=== PATIENT | female | born 1935 | race Caucasian/White ===

== ENCOUNTER → 2016-09-26 | Outpatient (REF) | payer MEDICARE, OTHER ==
[~2016-09-26] MED LIST: ALLO15TA; AMLO10TA2; LABE10TAB; LEVO25TA34; LOSA100T36; NIFE30TA7; ROPI0.5T; SPIR25TA2; VITA1CAP40
== END ==
LOC: M LAB REF 17:24
PROVIDERS: ATTEND Internal Medicine Nephrology
DX: N39.0 Urinary tract infection, site not specified (principal)

== ENCOUNTER 2016-10-21 12:09 | Emergency (ER) | payer MEDICARE, OTHER ==
[~2016-10-21] VITALS: Ht 167.6 cm; Wt 95.5 kg
[2016-10-21] MEDS ORDERED: SPIR25TA2 (12:26)
[2016-10-21] MEDS ORDERED: VITA1CAP40 (12:26)
[2016-10-21] MEDS ORDERED: ALLO15TA (12:26)
[2016-10-21] MEDS ORDERED: LOSA100T36 (12:26)
[2016-10-21] MEDS ORDERED: NIFE30TA7 (12:26)
[2016-10-21] MEDS ORDERED: LEVO25TA34 (12:26)
[2016-10-21] MEDS ORDERED: LABE10TAB (12:26)
[2016-10-21] MEDS ORDERED: AMLO10TA2 (12:26)
[2016-10-21] MEDS ORDERED: ROPI0.5T (12:26)
[2016-10-21 15:41] LABS: BASO % 0.4 % (0.0-1.0); EOS # 0.1 K/mm3 (0.0-0.50); EOS % 1.2 % (0.0-3.0); LARGE UNSTAINED CELL # 0.2 K/mm3 (0.0-0.4); LARGE UNSTAINED CELL % 1.4 % (0.0-4.0); LYMPH # 1.8 K/mm3 (1.5-4.5); LYMPH % 16.2 % (24.0-44.0); MEAN CORPUSCULAR HGB CONC 34.8 g/dl (32.0-36.5); MEAN CORPUSCULAR VOLUME 91.9 fl (80.0-96.0); MONO # 0.5 K/mm3 (0.0-0.8); MONO % 4.7 % (0.0-5.0); NEUTROPHILS # 8.2 K/mm3 (1.8-7.7); NEUTROPHILS % 76.1 % (36.0-66.0); PLATELET COUNT, AUTOMATED 255 k/mm3 (150-450); RED CELL DISTRIBUTION WIDTH 13.8 % (11.5-14.5); WHITE BLOOD COUNT 10.8 K/mm3 (4.0-10.0)
[2016-10-21] MEDS ORDERED: NS 500 ML IV ONE (15:45)
[2016-10-21] MEDS: KETOROLAC 30 MG/ML VIAL (J1885) IV ONE ×2 (15:45→15:55)
[2016-10-21 15:47] LABS: INR 1.03
[2016-10-21 15:52] LABS: ALBUMIN 4.2 GM/DL (3.2-5.2); ALBUMIN/GLOBULIN RATIO 0.93 (1.00-1.93); BILIRUBIN,DIRECT 0.2 MG/DL (0.0-0.2); CALCIUM LEVEL 9.8 MG/DL (8.8-10.2); CREATININE FOR GFR 2.42 MG/DL (0.55-1.02); GLOMERULAR FILTRATION RATE 20.3 (>32); POTASSIUM SERUM 4.4 MEQ/L (3.5-5.1); TOTAL PROTEIN 8.7 GM/DL (6.4-8.2)
--- NOTE | 2016-10-21 16:04 | REP ---
Clinical: Left-sided abdominal pain. Technique: Upright view of the chest with supine and upright views of the abdomen and pelvis. Findings: Frontal upright view of the chest demonstrates no acute cardiopulmonary process or free air below the diaphragm to suspect pneumoperitoneum. Supine and upright views of the abdomen and pelvis demonstrate nonspecific bowel gas pattern without obstruction or perforation. No organomegaly. No abnormal calcifications. Postsurgical changes noted. Skeletal structures normal for age. Impression: Nonspecific bowel gas pattern. Signed by Viet Shepard MD 10/21/2016 03:54 P
--- NOTE | 2016-10-21 16:55 | REP ---
Clinical: Acute left-sided abdominal pain. Findings: Lung bases are clear. Small hiatal hernia noted. Liver, spleen, pancreas, bilateral adrenal glands and kidneys are normal. No perinephric stranding, nephrolithiasis, hydronephrosis or obstructing ureteral calculi are identified. The patient is status post cholecystectomy. The enteric system is without obstruction or acute inflammatory process. Colonic and sigmoid diverticulosis noted without acute diverticulitis. Normal terminal ileum and appendix identified in the right lower quadrant. 4.8 cm fat containing periumbilical hernia noted. Pelvis demonstrates normal bladder and age-appropriate uterus/adnexa. No pelvic fluid or ascites. No free air. Atherosclerotic changes to the vasculature noted. Musculoskeletal structures demonstrate degenerative changes without focal osseous abnormality. Impression: No acute abdominopelvic pathology appreciated. Diverticulosis without acute diverticulitis. 4.8 cm fat containing periumbilical hernia. Signed by Viet Shepard MD 10/21/2016 04:47 P
[2016-10-21 17:50] VITALS: BP 123/93
--- NOTE | 2016-10-21 19:37 | ECGEPIP ---
Stationary ECG Study [facility] - ED Test Date: 2016-10-21 Pat Name: CATHY ARELLANO Department: Room: - Gender: F Office Manager Executive Assistant: mae : 1935 Requested By: Linda Mayorga Order Number: [id number] Reading MD: Jm Wiley Measurements Intervals [place] Rate: 62 P: -31 [place]: 154 QRS: -20 QRSD: 88 T: 78 QT: 439 QTc: 447 Interpretive Statements SINUS RHYTHM LEFT VENTRICULAR HYPERTROPHY AND ST-T CHANGE NO PRIORS Electronically Signed On 10-21-2016 19:37:53 EDT by Jm Wiley
== END 2016-10-21 18:14 | disposition home or self-care (01) ==
LOC: M ED 12:09
DX: R10.9 Unspecified abdominal pain (principal); I25.10 Atherosclerotic heart disease of native coronary artery without angina pectoris; N18.4 Chronic kidney disease, stage 4 (severe); I12.9 Hypertensive chronic kidney disease with stage 1 through stage 4 chronic kidney disease, or unspecified chronic kidney disease; E66.9 Obesity, unspecified; E78.00 Pure hypercholesterolemia, unspecified; E03.9 Hypothyroidism, unspecified; I25.2 Old myocardial infarction; Z95.5 Presence of coronary angioplasty implant and graft; Z79.899 Other long term (current) drug therapy
CPT/HCPCS: 74022; 74176; 80048; 80076; 81001; 82150; 82550; 82553; 83605; 83690; 84484; 85025; 85610; 85730; 87040; 87086; 93005; 99283; J1885